=== PATIENT | female | born 2000 | race Native Hawaiian/Other Pacific Islander ===

== ENCOUNTER 2019-10-19 14:13 | Outpatient (CLI) | payer BC ==
[2019-10-19 14:59] LABS: PLATELET COUNT 272 K/uL (152-353)
[2019-10-19 15:27] LABS: POTASSIUM 3.5 mmol/L (3.6-5.2)
== END 2019-10-19 22:07 | disposition home or self-care (01) ==
LOC: LABW 14:13
PROVIDERS: Nurse Practitioner Family
DX: R10.84 Generalized abdominal pain (principal)
CPT/HCPCS: 36415; 80053; 82150; 83690; 85027; 86677

== ENCOUNTER 2019-10-22 10:28 | Outpatient (CLI) | payer BC | END 2019-10-22 22:20 | disposition home or self-care (01) | LOC: US 10:28 | DX: R10.84 Generalized abdominal pain (principal) ==